=== PATIENT | female | born 1970 | race Caucasian/White ===

== ENCOUNTER 2018-04-03 23:44 | Emergency (ER) | payer MEDICARE, MEDICAID ==
[~2018-04-03] VITALS: Ht 175.3 cm; Wt 50.0 kg
[2018-04-04] MEDS ORDERED: OXYcodone/APAP 5/325MG TABLET PO ONE (00:30)
[2018-04-04] MEDS ORDERED: DIPH,PERTUSS(ACELL),TET VAC/PF 0.5 ML IM-VACC ONE ×2 (00:30→00:38)
[2018-04-04] MEDS ORDERED: OXYcodone/APAP 5/325MG TABLET ONE (00:38)
--- NOTE | 2018-04-04 00:51 | NUR ---
pt refusing percocet. MELL Fonseca notified
--- NOTE | 2018-04-04 01:36 | NUR ---
pt called nurse into room. stated that she has not gotten any pain meds and that two people have tried to take her to imaging but was waiting for pain meds and that she just wants to be treated. this nurse informed her that we are trying to treat her, she refused the pain meds and told the imaging techs to come back. this rn asked if she wanted the percocet that was offered to her earlier and if she still wanted the imaging. states she did not want the percocet because she takes a higher dose at home and the dose offered would not do anything. she said she just wants whatever needs to get done to get out of here faster. imaging called and informed techs that the patient is ready for her imaging.
--- NOTE | 2018-04-04 02:58 | NUR ---
RECEIVED REPORT FROM TRAVIS OAKLEY. PT. CHART UP FOR RECHECK AT THIS TIME.
--- NOTE | 2018-04-04 03:13 | NUR ---
DR. SILVER WAS IN TO DISCUSS D/C PLAN WITH PT. AND FAMILY.
[2018-04-04 03:21] VITALS: BP 91/46
== END 2018-04-04 03:22 | disposition home or self-care (01) ==
LOC: ED 04-04 03:16
DX: S80.02XA Contusion of left knee, initial encounter (principal); S00.31XA Abrasion of nose, initial encounter; S09.8XXA Other specified injuries of head, initial encounter; W01.0XXA Fall on same level from slipping, tripping and stumbling without subsequent striking against object, initial encounter; Y93.01 Activity, walking, marching and hiking; Y92.009 Unspecified place in unspecified non-institutional (private) residence as the place of occurrence of the external cause; Y99.8 Other external cause status
CPT/HCPCS: 70450; 70486; 90471; 90715